=== PATIENT | male | born 1980 | race Caucasian/White ===

== ENCOUNTER 2017-02-08 06:22 | Inpatient (IN) | payer MEDICARE, MEDICAID ==
[~2017-02-08] VITALS: Ht 167.6 cm; Wt 103.4 kg
[2017-02-08] MEDS: ALBUTEROL/IPRATROPIUM 2.5MG/0.5MG, 3 ML NPPB SCH ×5 (06:44→21:05)
[2017-02-08] MEDS ORDERED: ALBUTEROL/IPRATROPIUM 2.5MG/0.5MG, 3 ML ONE ×3 (06:45→09:25)
[2017-02-08] MEDS ORDERED: SODIUM CHLORIDE 0.9% 1,000ML IVBOLUS ONE ×3 (07:00→09:30)
[2017-02-08] MEDS ORDERED: SODIUM CHLORIDE FLUSH 10ML SYR IVF ONE (07:00)
[2017-02-08] MEDS ORDERED: MAGNESIUM SULFATE PMX 2GM/50ML 50 ML IV ONE (07:00)
[2017-02-08] MEDS ORDERED: methylPREDNISolone SOD SUCC 125 MG/2 ML IVP ONE (07:00)
[2017-02-08 07:24] LABS: BLOOD UREA NITROGEN 13 mg/dL (7-18)
[2017-02-08 07:29] LABS: IS PT STATUS REG ER OR PRE ER? YES
[2017-02-08] MEDS ORDERED: methylPREDNISolone SOD SUCC 125 MG/2 ML ONE (08:50)
[2017-02-08] MEDS ORDERED: AZITHROMYCIN 500 MG in SODIUM CHLORIDE 0.9% 250 ML IV ONE (09:00)
[2017-02-08] MEDS ORDERED: CEFTRIAXONE PMX 1GM/50ML 50 ML IVPB ONE (09:00)
[2017-02-08] MEDS ORDERED: LORazepam 2 MG/ML, 1ML ONE (09:24)
[2017-02-08] MEDS ORDERED: CEFTRIAXONE PMX 1GM/50ML 50 ML ONE (09:28)
[2017-02-08] MEDS ORDERED: SODIUM CHLORIDE 0.9% 1,000 ML IV SCH (09:28)
[2017-02-08] MEDS ORDERED: ALBUTEROL SULFATE 2.5 MG/3 ML ONE (09:29)
[2017-02-08] MEDS ORDERED: GUAIFENESIN/DM 200-20MG, 10ML UDC PO PRN (09:30)
[2017-02-08] MEDS ORDERED: ALBUTEROL 0.5%, 20ML NPPB SCH (09:30)
[2017-02-08] MEDS ORDERED: ONDANSETRON 2MG/ML, 2ML IVPush PRN (09:30)
[2017-02-08] MEDS ORDERED: DOCUSATE 100 MG CAPSULE PO PRN (09:30)
[2017-02-08] MEDS ORDERED: ACETAMINOPHEN 325 MG TABLET PO PRN (09:30)
[2017-02-08] MEDS ORDERED: LORazepam 2 MG/ML, 1ML IVPush ONE (09:30)
[2017-02-08 13:00] VITALS: BP 104/50
[2017-02-08] MEDS ORDERED: DILT120T3 PO (13:23)
[2017-02-08] MEDS ORDERED: OMEP20CA14 PO (13:33)
[2017-02-08] MEDS ORDERED: SPIR25TA3 PO (13:33)
[2017-02-08] MEDS ORDERED: QUET100T PO (13:33)
[2017-02-08] MEDS ORDERED: QUET25TA PO (13:33)
[2017-02-08] MEDS ORDERED: FURO20TA3 PO (13:33)
[2017-02-08] MEDS ORDERED: LISI2.5T PO (13:33)
[2017-02-08] MEDS ORDERED: ATOR40TA78 PO (13:33)
[2017-02-08] MEDS ORDERED: FLUT1DIS3 INH (13:34)
[2017-02-08] MEDS ORDERED: SPIRONOLACTONE 50 MG TABLET PO SCH (14:00)
[2017-02-08] MEDS: LORazepam 2 MG/ML, 1ML IVPush PRN ×2 (15:30→21:52)
[2017-02-08] MEDS: methylPREDNISolone SOD SUCC 125 MG/2 ML IVPush SCH ×2 (15:32→21:24)
[2017-02-08] MEDS: HEPARIN 5,000 UNITS/ML, 1ML SQ SCH ×2 (15:33→23:33)
[2017-02-08] MEDS: DILTIAZEM 240 MG CAP.ER.24H PO SCH (15:35)
[2017-02-08 16:01] LABS: ABG COLLECTION SITE LEFT BRACHIAL
[2017-02-08] MEDS: BUSPIRONE 5 MG TABLET PO SCH ×2 (17:19→21:24)
[2017-02-08 20:30] VITALS: BP 103/59
[2017-02-08] MEDS: ATORVASTATIN 40 MG TABLET PO SCH (21:24)
[2017-02-08] MEDS: QUETIAPINE 100MG TABLET PO SCH (21:28)
[2017-02-09] VITALS (8 sets, daily range): BP systolic 81–110; BP diastolic 41–69
[2017-02-09] MEDS: ALBUTEROL/IPRATROPIUM 2.5MG/0.5MG, 3 ML NPPB SCH ×6 (01:20→23:10)
[2017-02-09] MEDS: methylPREDNISolone SOD SUCC 125 MG/2 ML IVPush SCH ×4 (03:08→20:49)
[2017-02-09 06:01] LABS: BLOOD UREA NITROGEN 33 mg/dL (7-18)
[2017-02-09] MEDS ORDERED: SODIUM CHLORIDE 0.9% 1,000ML IVBOLUS ONE ×2 (08:00→10:00)
[2017-02-09] MEDS ORDERED: LISINOPRIL 5 MG TABLET PO SCH (09:00)
[2017-02-09] MEDS: SODIUM CHLORIDE 0.9% 1,000 ML IV SCH ×3 (09:11→22:52)
[2017-02-09] MEDS: OMEPRAZOLE 20 MG CAPSULE.DR PO SCH (09:11)
[2017-02-09] MEDS: BUSPIRONE 5 MG TABLET PO SCH ×3 (09:11→20:47)
[2017-02-09] MEDS: QUETIAPINE 25MG TABLET PO SCH (09:11)
[2017-02-09] MEDS: HEPARIN 5,000 UNITS/ML, 1ML SQ SCH ×2 (09:12→15:48)
[2017-02-09] MEDS: DILTIAZEM 240 MG CAP.ER.24H PO SCH ×2 (09:12→09:47)
[2017-02-09] MEDS ORDERED: SODIUM CHLORIDE 0.9% 1,000 ML IV SCH (09:28)
[2017-02-09] MEDS: FLUTICASONE/VILANTEROL 100-25MCG/INH INH SCH (10:01)
[2017-02-09] MEDS ORDERED: AZITHROMYCIN 500 MG in SODIUM CHLORIDE 0.9% 250 ML IV SCH (10:30)
[2017-02-09] MEDS ORDERED: CEFTRIAXONE 2 GM in SODIUM CHLORIDE 0.9% 50 ML IV SCH (10:30)
[2017-02-09 12:23] LABS: ASPARTATE AMINO TRANSFERASE 21 U/L (15-37); BLOOD UREA NITROGEN 35 mg/dL (7-18)
[2017-02-09 12:57] LABS: DIFF TOTAL CELLS COUNTED 100 CELL DIFF; VERIFY COUNTS? YES
[2017-02-09] MEDS ORDERED: VANCOMYCIN PER PHARMACY MC PRN (15:00)
[2017-02-09] MEDS ORDERED: PHARMACOKINETIC MONITORING MC PRN (15:30)
[2017-02-09] MEDS: PIPERACILLIN/TAZO 3.375 GM in SODIUM CHLORIDE 0.9% 50 ML IV SCH ×2 (15:48→22:47)
[2017-02-09] MEDS ORDERED: VANCOMYCIN 2,000 MG in SODIUM CHLORIDE 0.9% 500 ML IV ONE (17:00)
[2017-02-09] MEDS: ATORVASTATIN 40 MG TABLET PO SCH (20:48)
[2017-02-09] MEDS: QUETIAPINE 100MG TABLET PO SCH (20:48)
[2017-02-10] MEDS: LORazepam 2 MG/ML, 1ML IVPush PRN ×2 (00:15→22:07)
[2017-02-10] MEDS: HEPARIN 5,000 UNITS/ML, 1ML SQ SCH ×4 (00:15→23:01)
[2017-02-10 00:18] VITALS: BP 100/60
[2017-02-10] MEDS: ALBUTEROL/IPRATROPIUM 2.5MG/0.5MG, 3 ML NPPB SCH ×4 (03:30→14:00)
[2017-02-10] MEDS: methylPREDNISolone SOD SUCC 125 MG/2 ML IVPush SCH ×2 (03:35→09:34)
[2017-02-10] MEDS: PIPERACILLIN/TAZO 3.375 GM in SODIUM CHLORIDE 0.9% 50 ML IV SCH ×2 (03:35→09:34)
[2017-02-10] MEDS: SODIUM CHLORIDE 0.9% 1,000 ML IV SCH ×4 (03:36→12:00)
[2017-02-10 06:58] LABS: BLOOD UREA NITROGEN 30 mg/dL (7-18)
[2017-02-10 07:04] LABS: DIFF TOTAL CELLS COUNTED 100 CELL DIFF
[2017-02-10 07:07] LABS: VERIFY COUNTS? YES
[2017-02-10 07:34] VITALS: BP 115/62
[2017-02-10] MEDS: FLUTICASONE/VILANTEROL 100-25MCG/INH INH SCH (09:35)
[2017-02-10] MEDS: QUETIAPINE 25MG TABLET PO SCH (09:35)
[2017-02-10] MEDS: BUSPIRONE 5 MG TABLET PO SCH ×3 (09:35→20:31)
[2017-02-10] MEDS: DILTIAZEM 240 MG CAP.ER.24H PO SCH (09:36)
[2017-02-10] MEDS: OMEPRAZOLE 20 MG CAPSULE.DR PO SCH (09:36)
[2017-02-10] MEDS: VANCOMYCIN 2,000 MG in SODIUM CHLORIDE 0.9% 500 ML IV SCH ×2 (10:51→20:31)
[2017-02-10 14:41] VITALS: BP 122/65
[2017-02-10] MEDS: PIPERACILLIN/TAZO/PMX 4.5GM 100 ML IV SCH ×2 (17:00→22:55)
[2017-02-10] MEDS: ATORVASTATIN 40 MG TABLET PO SCH (20:31)
[2017-02-10 20:47] VITALS: BP 132/70
[2017-02-10] MEDS: QUETIAPINE 100MG TABLET PO SCH (22:06)
[2017-02-11 04:00] VITALS: BP 128/76
[2017-02-11] MEDS: PIPERACILLIN/TAZO/PMX 4.5GM 100 ML IV SCH ×4 (05:22→22:47)
[2017-02-11] MEDS: ALBUTEROL/IPRATROPIUM 2.5MG/0.5MG, 3 ML NPPB PRN (05:41)
[2017-02-11 06:18] LABS: BLOOD UREA NITROGEN 28 mg/dL (7-18)
[2017-02-11 06:31] LABS: DIFF TOTAL CELLS COUNTED 100 CELL DIFF
[2017-02-11 06:41] LABS: VERIFY COUNTS? YES
[2017-02-11 07:52] VITALS: BP 127/77
[2017-02-11] MEDS: HEPARIN 5,000 UNITS/ML, 1ML SQ SCH ×2 (08:00→15:17)
[2017-02-11] MEDS: VANCOMYCIN 2,000 MG in SODIUM CHLORIDE 0.9% 500 ML IV SCH ×2 (08:22→20:28)
[2017-02-11] MEDS: FLUTICASONE/VILANTEROL 100-25MCG/INH INH SCH (08:23)
[2017-02-11] MEDS: BUSPIRONE 5 MG TABLET PO SCH ×3 (08:23→20:29)
[2017-02-11] MEDS: DILTIAZEM 240 MG CAP.ER.24H PO SCH (08:23)
[2017-02-11] MEDS: QUETIAPINE 25MG TABLET PO SCH (08:24)
[2017-02-11] MEDS: OMEPRAZOLE 20 MG CAPSULE.DR PO SCH (08:28)
[2017-02-11 11:06] LABS: FUNGITELL RESULT <31 pg/mL (<80)
[2017-02-11 14:58] VITALS: BP 121/72
[2017-02-11 18:30] VITALS: BP 116/70
[2017-02-11] MEDS: QUETIAPINE 100MG TABLET PO SCH (20:29)
[2017-02-11] MEDS: ATORVASTATIN 40 MG TABLET PO SCH (20:29)
[2017-02-12] MEDS: ALBUTEROL/IPRATROPIUM 2.5MG/0.5MG, 3 ML NPPB PRN (03:51)
[2017-02-12 03:57] VITALS: BP 107/69
[2017-02-12] MEDS: PIPERACILLIN/TAZO/PMX 4.5GM 100 ML IV SCH ×4 (05:10→22:59)
[2017-02-12 05:53] LABS: BLOOD UREA NITROGEN 30 mg/dL (7-18)
[2017-02-12 06:29] LABS: DIFF TOTAL CELLS COUNTED 100 CELL DIFF
[2017-02-12 06:31] LABS: VERIFY COUNTS? YES
[2017-02-12 07:08] VITALS: BP 149/69
[2017-02-12] MEDS: HEPARIN 5,000 UNITS/ML, 1ML SQ SCH ×4 (08:00→23:28)
[2017-02-12] MEDS: QUETIAPINE 25MG TABLET PO SCH (08:52)
[2017-02-12] MEDS: FLUTICASONE/VILANTEROL 100-25MCG/INH INH SCH (08:52)
[2017-02-12] MEDS: VANCOMYCIN 2,000 MG in SODIUM CHLORIDE 0.9% 500 ML IV SCH (08:52)
[2017-02-12] MEDS: DILTIAZEM 240 MG CAP.ER.24H PO SCH (08:53)
[2017-02-12] MEDS: BUSPIRONE 5 MG TABLET PO SCH ×3 (08:53→21:56)
[2017-02-12] MEDS: OMEPRAZOLE 20 MG CAPSULE.DR PO SCH (08:53)
[2017-02-12] MEDS ORDERED: AMOX1TAB64 PO (12:10)
[2017-02-12] MEDS ORDERED: PRED10TA PO (12:10)
[2017-02-12 13:10] VITALS: BP 126/71
[2017-02-12 19:42] VITALS: BP 113/70
[2017-02-12] MEDS: QUETIAPINE 100MG TABLET PO SCH (21:57)
[2017-02-12] MEDS: ATORVASTATIN 40 MG TABLET PO SCH (21:57)
[2017-02-13] MEDS: PIPERACILLIN/TAZO/PMX 4.5GM 100 ML IV SCH (04:49)
[2017-02-13 04:51] VITALS: BP 137/75
[2017-02-13] MEDS: OMEPRAZOLE 20 MG CAPSULE.DR PO SCH (07:09)
[2017-02-13] MEDS: BUSPIRONE 5 MG TABLET PO SCH (07:09)
[2017-02-13] MEDS: QUETIAPINE 25MG TABLET PO SCH (07:09)
[2017-02-13] MEDS: DILTIAZEM 240 MG CAP.ER.24H PO SCH (07:09)
[2017-02-13] MEDS: FLUTICASONE/VILANTEROL 100-25MCG/INH INH SCH (07:09)
[2017-02-13] MEDS: HEPARIN 5,000 UNITS/ML, 1ML SQ SCH (07:10)
[2017-02-13] MEDS ORDERED: FLUT1DIS3 INH (07:53)
[2017-02-13 08:48] VITALS: BP 103/69
== END 2017-02-13 10:47 | disposition home or self-care (01) | DRG 291 ==
LOC: ED 08:44 → EDIP 09:28 → 5SO 10:53
PROVIDERS: ADMIT Hospitalist; ATTEND Hospitalist
PROC: 0T9B70Z Drainage of Bladder with Drainage Device, Via Natural or Artificial Opening (ICD-10-PCS; principal; 2017-02-09)
DX: I11.0 Hypertensive heart disease with heart failure (principal); J18.9 Pneumonia, unspecified organism; J96.01 Acute respiratory failure with hypoxia; N17.9 Acute kidney failure, unspecified; J44.0 Chronic obstructive pulmonary disease with (acute) lower respiratory infection; J44.1 Chronic obstructive pulmonary disease with (acute) exacerbation; J45.51 Severe persistent asthma with (acute) exacerbation; I50.33 Acute on chronic diastolic (congestive) heart failure; F31.9 Bipolar disorder, unspecified; G47.33 Obstructive sleep apnea (adult) (pediatric); E78.5 Hyperlipidemia, unspecified; I25.2 Old myocardial infarction; K21.9 Gastro-esophageal reflux disease without esophagitis; Z79.899 Other long term (current) drug therapy; Z87.891 Personal history of nicotine dependence; Z88.6 Allergy status to analgesic agent; Z88.3 Allergy status to other anti-infective agents; Z88.8 Allergy status to other drugs, medicaments and biological substances
CPT/HCPCS: 36415; 36600; 71010; 76770; 80048; 80053; 80061; 80202; 81003; 82040; 82570; 82803; 83605; 83615; 83735; 83880; 84100; 84145; 84439; 84443; 84484; 84540; 85025; 87040; 87449; 93005; 93306; 94640; 96374; 96375; J0456; J0696; J1644; J2543; J3370; J7620; J2060; J2930; J3475; J7030; J7040; J7050; J7512

== ENCOUNTER 2017-05-16 19:03 | Emergency (ER) | payer MEDICARE, MEDICAID ==
[~2017-05-16] VITALS: Ht 167.6 cm; Wt 96.3 kg
[~2017-05-16 19:03] MED LIST: AMOX1TAB64 PO; ATOR40TA78 PO; DILT120T3 PO; FLUT1DIS3 INH; FURO20TA3 PO; LISI2.5T PO; OMEP20CA14 PO; PRED10TA PO; QUET100T PO; QUET25TA PO; SPIR25TA3 PO
[2017-05-16 19:04] VITALS: BP 126/70
== END 2017-05-16 20:35 | disposition home or self-care (01) ==
LOC: ED 19:55
DX: S79.111A Salter-Harris Type I physeal fracture of lower end of right femur, initial encounter for closed fracture (principal); J45.909 Unspecified asthma, uncomplicated; I25.2 Old myocardial infarction; X58.XXXA Exposure to other specified factors, initial encounter; Y93.89 Activity, other specified; Y92.009 Unspecified place in unspecified non-institutional (private) residence as the place of occurrence of the external cause; Y99.9 Unspecified external cause status
CPT/HCPCS: 99283

== ENCOUNTER 2017-06-12 11:18 | Emergency (ER) | payer MEDICARE, MEDICAID ==
[~2017-06-12] VITALS: Ht 167.6 cm; Wt 98.2 kg
[2017-06-12 12:44] LABS: HEMATOCRIT 47.7 % (39.2-51.8); WHITE BLOOD COUNT 12.3 x10^3/uL (3.4-10)
[2017-06-12 12:57] LABS: BLOOD UREA NITROGEN 16 mg/dL (7-18)
[2017-06-12 13:03] LABS: IS PT STATUS REG ER OR PRE ER? YES
[2017-06-12] MEDS ORDERED: HYDROcodone/APAP 5/325 TABLET PO ONE (14:30)
[2017-06-12] MEDS ORDERED: HYDROcodone/APAP 5/325 TABLET ONE (14:52)
[2017-06-12 15:49] VITALS: BP 110/74
== END 2017-06-12 16:27 | disposition home or self-care (01) ==
LOC: ED 13:05
DX: G89.29 Other chronic pain (principal); M79.651 Pain in right thigh; M79.661 Pain in right lower leg; J45.909 Unspecified asthma, uncomplicated; I25.2 Old myocardial infarction; Z87.891 Personal history of nicotine dependence; Z88.6 Allergy status to analgesic agent; Z91.041 Radiographic dye allergy status
CPT/HCPCS: 36415; 71010; 80048; 82040; 83880; 84484; 85025; 85610; 85730; 93005; 99285

== ENCOUNTER → 2017-06-16 | Outpatient (CLI) | payer MEDICARE, MEDICAID ==
[2017-06-16 10:27] LABS: HEMATOCRIT 46.6 % (39.2-51.8); HEMOGLOBIN 15.9 g/dL (13.7-18.0); WHITE BLOOD COUNT 13.4 x10^3/uL (3.4-10)
[2017-06-17 14:44] LABS: ANA SCREEN POSITIVE (Negative); ANA TITER TITER NOT P'D ON SSA
[2017-06-17 14:45] LABS: RHEUMATOID FACTOR SCREEN NEGATIVE (NEGATIVE)
== END | disposition home or self-care (01) ==
LOC: LAB 09:54
PROVIDERS: ATTEND Family Medicine Sports Medicine
DX: M79.604 Pain in right leg (principal); E03.9 Hypothyroidism, unspecified
CPT/HCPCS: 36415; 81374; 83970; 84443; 84550; 85025; 85651; 86038; 86039; 86200; 86430

== ENCOUNTER 2017-08-18 10:26 | Inpatient (IN) | payer MEDICARE, MEDICAID ==
[~2017-08-18] VITALS: Ht 167.6 cm; Wt 105.3 kg
[2017-08-18] MEDS ORDERED: GABA300C10 PO (10:43)
[2017-08-18] MEDS ORDERED: SERT50TA5 PO (10:44)
[2017-08-18] MEDS ORDERED: RISP0.5T3 PO (10:44)
[2017-08-18] MEDS ORDERED: ALBU1.25 NEB (10:45)
[2017-08-18] MEDS ORDERED: ALBUTEROL 0.5%, 20ML NPPB SCH (11:00)
[2017-08-18] MEDS ORDERED: ALBUTEROL 0.5%, 20ML ONE (11:07)
[2017-08-18 11:24] LABS: HEMATOCRIT 42.3 % (39.2-51.8); HEMOGLOBIN 14.5 g/dL (13.7-18.0); WHITE BLOOD COUNT 22.3 x10^3/uL (3.4-10)
[2017-08-18 11:38] LABS: BLOOD UREA NITROGEN 15 mg/dL (7-18)
[2017-08-18 11:41] LABS: ASPARTATE AMINO TRANSFERASE 13 U/L (15-37)
[2017-08-18 11:57] LABS: DIFF TOTAL CELLS COUNTED 100 CELL DIFF
[2017-08-18 11:58] LABS: VERIFY COUNTS? YES
[2017-08-18] MEDS ORDERED: AZITHROMYCIN 500 MG in SODIUM CHLORIDE 0.9% 250 ML IV ONE (12:00)
[2017-08-18] MEDS ORDERED: SODIUM CHLORIDE 0.9%, 500ML IVBOLUS ONE (12:00)
[2017-08-18] MEDS ORDERED: ONDANSETRON 2MG/ML, 2ML ONE (12:32)
[2017-08-18 12:40] LABS: ABG COLLECTION SITE RIGHT RADIAL; COLLATERAL CIRCULATION TESTING NORMAL
[2017-08-18] MEDS ORDERED: POLYETHYLENE GLYCOL 17 GM PACKET PO PRN (13:00)
[2017-08-18] MEDS ORDERED: ALBUTEROL SULFATE 2.5 MG/3 ML NEB PRN (13:00)
[2017-08-18] MEDS ORDERED: DOCUSATE 100 MG CAPSULE PO PRN (13:00)
[2017-08-18] MEDS ORDERED: ENALAPRILAT 1.25 MG/ML, 2ML IVPush PRN (13:00)
[2017-08-18] MEDS ORDERED: HYDROcodone/APAP 5/325 TABLET PO PRN (13:00)
[2017-08-18] MEDS: HEPARIN 5,000 UNITS/ML, 1ML SQ SCH ×2 (13:00→21:00)
[2017-08-18] MEDS ORDERED: ATORVASTATIN 40 MG TABLET PO PRN (13:00)
[2017-08-18] MEDS ORDERED: ACETAMINOPHEN 325 MG TABLET PO PRN (13:00)
[2017-08-18] MEDS ORDERED: morphine SULFATE 10 MG/ML, 1ML IVPush PRN (13:00)
[2017-08-18] MEDS ORDERED: DILTIAZEM 120 MG TABLET PO PRN (13:00)
[2017-08-18] MEDS ORDERED: ONDANSETRON 2MG/ML, 2ML IVPush PRN (13:00)
[2017-08-18] MEDS ORDERED: BISACODYL 10 MG SUPP PR PRN (13:00)
[2017-08-18 13:03] LABS: IS PT STATUS REG ER OR PRE ER? YES
[2017-08-18 13:20] VITALS: BP 95/60
[2017-08-18] MEDS: ALBUTEROL SULFATE 2.5 MG/3 ML NPPB SCH ×2 (14:24→19:37)
[2017-08-18 14:30] VITALS: BP 95/60
[2017-08-18] MEDS: CEFTRIAXONE PMX 1GM/50ML 50 ML IV SCH (14:57)
[2017-08-18] MEDS: NS + 20MEQ KCL 1,000 ML IV SCH (14:57)
[2017-08-18] MEDS: methylPREDNISolone SOD SUCC 125 MG/2 ML IVPush SCH ×2 (15:01→21:29)
[2017-08-18] MEDS: DOXYCYCLINE 100 MG in DEXTROSE 5% 250 ML IV SCH (17:57)
[2017-08-18 19:07] VITALS: BP 105/61
[2017-08-18] MEDS ORDERED: QUETIAPINE 100MG TABLET PO SCH (21:00)
[2017-08-18] MEDS ORDERED: ZOLP10TA5 PO (21:20)
[2017-08-18] MEDS: GUAIFENESIN ER 600 MG TABLET PO SCH (21:28)
[2017-08-18] MEDS ORDERED: RISP1TAB3 PO (22:04)
[2017-08-19] MEDS: NS + 20MEQ KCL 1,000 ML IV SCH (01:25)
[2017-08-19 03:29] VITALS: BP 129/60
[2017-08-19] MEDS: methylPREDNISolone SOD SUCC 125 MG/2 ML IVPush SCH ×2 (03:41→09:42)
[2017-08-19] MEDS: HEPARIN 5,000 UNITS/ML, 1ML SQ SCH ×3 (05:00→20:41)
[2017-08-19 05:37] LABS: HEMATOCRIT 39.9 % (39.2-51.8); HEMOGLOBIN 13.4 g/dL (13.7-18.0); WHITE BLOOD COUNT 30.7 x10^3/uL (3.4-10)
[2017-08-19 05:40] LABS: BLOOD UREA NITROGEN 14 mg/dL (7-18)
[2017-08-19] MEDS: DOXYCYCLINE 100 MG in DEXTROSE 5% 250 ML IV SCH ×2 (05:50→17:58)
[2017-08-19 06:03] LABS: DIFF TOTAL CELLS COUNTED 100 CELL DIFF
[2017-08-19 06:05] LABS: POLYCHROMASIA 1+; VERIFY COUNTS? YES
[2017-08-19 07:16] VITALS: BP 97/54
[2017-08-19] MEDS: ALBUTEROL SULFATE 2.5 MG/3 ML NPPB SCH ×4 (08:40→19:26)
[2017-08-19] MEDS ORDERED: RISPERIDONE 0.5 MG TABLET PO SCH (09:00)
[2017-08-19] MEDS ORDERED: QUETIAPINE 25MG TABLET PO SCH (09:00)
[2017-08-19] MEDS: LISINOPRIL 5 MG TABLET PO SCH (09:42)
[2017-08-19] MEDS: SERTRALINE 50MG TABLET PO SCH (09:42)
[2017-08-19] MEDS: TEMPLATE NON-FORMULARY MED. (Fluticasone/Salmeterol** (Advair 250-50 Diskus**) 1 PUFF) INH SCH (09:43)
[2017-08-19] MEDS: GUAIFENESIN ER 600 MG TABLET PO SCH ×2 (09:43→20:47)
[2017-08-19] MEDS: GABAPENTIN 300 MG CAPSULE PO SCH (09:43)
[2017-08-19] MEDS ORDERED: ZOLPIDEM 10MG TABLET PO PRN (11:30)
[2017-08-19 13:02] VITALS: BP 97/43
[2017-08-19] MEDS: CEFTRIAXONE PMX 1GM/50ML 50 ML IV SCH (14:21)
[2017-08-19 19:34] VITALS: BP 111/64
[2017-08-19] MEDS ORDERED: ATORVASTATIN 40 MG TABLET PO SCH (21:00)
[2017-08-19] MEDS ORDERED: RISPERIDONE 1 MG TABLET PO SCH (21:00)
[2017-08-20 02:00] VITALS: BP 99/63
[2017-08-20] MEDS: HEPARIN 5,000 UNITS/ML, 1ML SQ SCH (05:00)
[2017-08-20] MEDS: DOXYCYCLINE 100 MG in DEXTROSE 5% 250 ML IV SCH (06:18)
[2017-08-20 06:33] LABS: HEMATOCRIT 39.3 % (39.2-51.8); HEMOGLOBIN 13.2 g/dL (13.7-18.0); WHITE BLOOD COUNT 32.1 x10^3/uL (3.4-10)
[2017-08-20 06:45] LABS: BLOOD UREA NITROGEN 24 mg/dL (7-18)
[2017-08-20 06:46] VITALS: BP 104/74
[2017-08-20 06:50] LABS: DIFF TOTAL CELLS COUNTED 100 CELL DIFF
[2017-08-20 06:57] LABS: VERIFY COUNTS? YES
[2017-08-20 06:58] LABS: POLYCHROMASIA 1+
[2017-08-20] MEDS: ALBUTEROL SULFATE 2.5 MG/3 ML NPPB SCH (07:00)
[2017-08-20] MEDS: GABAPENTIN 300 MG CAPSULE PO SCH (08:37)
[2017-08-20] MEDS: LISINOPRIL 5 MG TABLET PO SCH (08:37)
[2017-08-20] MEDS: GUAIFENESIN ER 600 MG TABLET PO SCH (08:37)
[2017-08-20] MEDS: SERTRALINE 50MG TABLET PO SCH (08:37)
[2017-08-20] MEDS: TEMPLATE NON-FORMULARY MED. (Fluticasone/Salmeterol** (Advair 250-50 Diskus**) 1 PUFF) INH SCH (08:38)
[2017-08-20] MEDS ORDERED: DILTIAZEM 120 MG TABLET PO SCH (09:00)
[2017-08-20] MEDS ORDERED: CEFD300C37 PO (09:42)
[2017-08-20] MEDS ORDERED: PRED20TA PO (09:42)
[2017-08-20] MEDS ORDERED: DOXY100T PO (09:42)
[2017-08-20] MEDS ORDERED: FLUT1DIS3 INH (09:42)
== END 2017-08-20 11:58 | disposition home or self-care (01) | DRG 871 ==
LOC: ED 10:32 → EDIP 12:17 → 3NE 13:27 → DCLOUNGE 08-20 11:58
PROVIDERS: ADMIT Internal Medicine; ATTEND Internal Medicine
DX: A41.9 Sepsis, unspecified organism (principal); J96.01 Acute respiratory failure with hypoxia; N17.0 Acute kidney failure with tubular necrosis; I11.0 Hypertensive heart disease with heart failure; I42.9 Cardiomyopathy, unspecified; J15.9 Unspecified bacterial pneumonia; J45.42 Moderate persistent asthma with status asthmaticus; I50.9 Heart failure, unspecified; J44.0 Chronic obstructive pulmonary disease with (acute) lower respiratory infection; J44.1 Chronic obstructive pulmonary disease with (acute) exacerbation; F31.30 Bipolar disorder, current episode depressed, mild or moderate severity, unspecified; J20.9 Acute bronchitis, unspecified; K21.9 Gastro-esophageal reflux disease without esophagitis; G47.33 Obstructive sleep apnea (adult) (pediatric); E78.5 Hyperlipidemia, unspecified; F10.10 Alcohol abuse, uncomplicated; F12.90 Cannabis use, unspecified, uncomplicated; F17.200 Nicotine dependence, unspecified, uncomplicated; F19.10 Other psychoactive substance abuse, uncomplicated; Z81.8 Family history of other mental and behavioral disorders; Z82.49 Family history of ischemic heart disease and other diseases of the circulatory system; Z84.1 Family history of disorders of kidney and ureter; Z83.79 Family history of other diseases of the digestive system
CPT/HCPCS: 36415; 36600; 71010; 80048; 80053; 82803; 83605; 83735; 83880; 84484; 85025; 87040; 87070; 87205; 93005; 94640; 99291; J0456; J0696; J3480; J7060; J7613; J2930; J7040; J7050; J7512

== ENCOUNTER → 2017-09-09 | Outpatient (CLI) | payer MEDICARE, MEDICAID ==
[~2017-09-09] MED LIST changes: +ALBU1.25 NEB; +CEFD300C37 PO; +DOXY100T PO; +GABA300C10 PO; +PRED20TA PO; +RISP0.5T3 PO; +RISP1TAB3 PO; +SERT50TA5 PO; +ZOLP10TA5 PO
== END | disposition home or self-care (01) ==
LOC: RAD 17:00
PROVIDERS: ATTEND Family Medicine
DX: J18.9 Pneumonia, unspecified organism (principal); J98.6 Disorders of diaphragm; M54.5 Low back pain; M54.41 Lumbago with sciatica, right side; G89.29 Other chronic pain
CPT/HCPCS: 71020; 72114

== ENCOUNTER 2017-11-22 19:15 | Emergency (ER) | payer MEDICARE, MEDICAID ==
[~2017-11-22] VITALS: Ht 167.6 cm; Wt 118.2 kg
[2017-11-22 20:08] LABS: RAPID INFLUENZA A Negative (Negative); RAPID INFLUENZA B Negative (Negative)
[2017-11-22 20:14] LABS: BASOPHILS # (AUTO) 0.06 x10^3/uL (0-0.1); BASOPHILS % (AUTO) 0 % (0-1); EOSINOPHILS # (AUTO) 1.01 x10^3/uL (0-0.4); EOSINOPHILS % (AUTO) 7 % (1-7); LYMPHOCYTES # (AUTO) 1.97 x10^3/uL (1-3.4); LYMPHOCYTES % (AUTO) 13 % (22-44); MD NO; MEAN CORPUSCULAR HEMOGLOBIN 30.5 pg (27.5-34.5); MEAN CORPUSCULAR HGB CONC 33.8 g/dL (33.2-36.2); MEAN CORPUSCULAR VOLUME 90.1 fL (81-97); MEAN PLATELET VOLUME 7.8 fL (7.4-10.4); MONOCYTES # (AUTO) 0.99 x10^3/uL (0.2-0.8); MONOCYTES % (AUTO) 7 % (2-9); NEUTROPHILS # (AUTO) 10.88 x10^3/uL (1.8-6.8); NEUTROPHILS % (AUTO) 73 % (42-75); PLATELET COUNT 258 x10^3/uL (130-400); RED BLOOD COUNT 4.91 x10^6/uL (4.38-5.82); RED CELL DISTRIBUTION WIDTH 13.5 % (9.4-14.8)
[2017-11-22 20:26] LABS: ALANINE AMINOTRANSFERASE 68 U/L (12-78); ALBUMIN 3.4 g/dL (3.4-5.0); ANION GAP 8 mmol/L (5-15); CALCIUM 8.6 mg/dL (8.5-10.1); CHLORIDE 106 mmol/L (98-107); CREATININE 1.33 mg/dL (0.7-1.3)
[2017-11-22 20:30] LABS: ALKALINE PHOSPHATASE 139 U/L (45-117); BILIRUBIN,TOTAL 0.3 mg/dL (0.2-1.0); TOTAL PROTEIN 6.8 g/dL (6.4-8.2)
[2017-11-22] MEDS ORDERED: ALBUTEROL/IPRATROPIUM 2.5MG/0.5MG, 3 ML NPPB ONE ×2 (21:30→22:30)
[2017-11-22] MEDS ORDERED: ALBUTEROL/IPRATROPIUM 2.5MG/0.5MG, 3 ML ONE ×2 (21:46→22:48)
[2017-11-22 22:34] VITALS: BP 117/70
== END 2017-11-22 23:35 | disposition home or self-care (01) ==
LOC: ED 22:01
DX: J45.41 Moderate persistent asthma with (acute) exacerbation (principal); I25.2 Old myocardial infarction; Z87.891 Personal history of nicotine dependence
CPT/HCPCS: 36415; 71045; 80053; 83880; 85025; 87400; 93005; 94640; 99285; J7512; J7620